=== PATIENT | male | born 1965 | race African-American/Black ===

== ENCOUNTER 2023-03-20 19:48 | Emergency (ER) | payer OTHER ==
[2023-03-20 20:24] LABS: #Basophils 0.1 thou/uL (0.0-0.2); #Eosinphils 0.2 thou/uL (0.0-0.7); #Lymphocytes 2.8 thou/uL (1.20-3.40); #Monocytes 0.5 thou/uL (0.11-0.59); #Neutrophils 3.7 thou/uL (1.40-6.50); %Basophils 1.1 % (0.0-1.0); %Eosinophils 2.2 % (0.0-10.0); %Lymphocytes 38.3 % (21.0-51.0); %Monocytes 6.9 % (0.0-10.0); %Neutrophils 51.5 % (42.0-75.0); Hemoglobin 13.2 g/dL (14.0-18.0); Mean Corpuscular HGB CONC 33.1 g/dL (32.0-36.0); Mean Corpuscular Hemoglobin 28.6 pg (27.0-31.0); Mean Corpuscular Volume 86.6 fl (78.0-98.0); Mean Platelet Volume 8.7 fL (7.4-10.4); Platelet Count 210 10x3/uL (130-400); RBC Distribution Width 12.8 % (11.5-14.5); Red Blood Cell (RBC) Count 4.62 mill/uL (4.70-6.10); White Blood Cell (WBC) Count 7.2 10x3/uL (4.8-10.8)
[2023-03-20 20:27] LABS: INR-International Normal Ratio 0.9; Prothrombin Time 12.7 sec (12.0-14.7)
[2023-03-20 20:30] LABS: PTT 22.8 sec (22.9-36.1)
[2023-03-20 20:38] LABS: ALT (SGPT) 44 U/L (8-55); AST (SGOT) 21 U/L (5-34); Albumin 3.8 g/dL (3.5-5.0); Alkaline Phosphatase 74 U/L (40-110); Anion Gap 13 mmol/L (10-20); BUN (Urea Nitrogen) 16 mg/dL (8.4-25.7); Bilirubin, Total 0.2 mg/dL (0.2-1.2); Calc. Creatinine Clearance 0 mL/min (70-130); Calcium 8.5 mg/dL (7.8-10.44); Carbon Dioxide 23 mmol/L (22-29); Chloride 103 mmol/L (98-107); Estimated GFR 54; Globulin 2.7 g/dL (2.4-3.5); Potassium 4.3 mmol/L (3.5-5.1); Protein, Total 6.5 g/dL (6.0-8.3); Sodium 135 mmol/L (136-145)
[2023-03-20 20:48] LABS: Glucose 496 mg/dL (70-105)
[2023-03-20] MEDS ORDERED: Sodium Chloride 0.9% 1,000 ML ONE (21:10)
[2023-03-20] MEDS ORDERED: Insulin Regular 300 UNITS/3 ML VIAL ONE (21:10)
[2023-03-20] MEDS ORDERED: Aspirin Chewable 81 MG TAB ONE (21:10)
[2023-03-21 00:17] LABS: Bilirubin Negative (Negative); Blood, Urine Negative (Negative); Clarity Clear (Clear); Glucose, Urine (Dipstick) >=1000 mg/dL (Negative); Ketone, Urine Negative (Negative); Leukocyte Negative (Negative); Nitrite Negative (Negative); Protein, Urine (Dipstick) Negative (Neg-Trace); Specific Gravity, Urine 1.015 (1.005-1.030); Urobilinogen 0.2 mg/dL (Less than 2)
[2023-03-21 00:18] LABS: CAUTI Indications for Culture Acute Hematuria; RBC/HPF None Seen HPF (0-3); Squamous Epithelial 0-3 HPF (0-3)
[2023-03-21 00:19] LABS: Urine Culture Reflex No No
[2023-03-21] MEDS ORDERED: Insulin Regular 300 UNITS/3 ML VIAL ONE (00:20)
== END 2023-03-21 01:48 | disposition short-term general hospital (02) ==
LOC: MADERS 19:48
DX: I63.9 Cerebral infarction, unspecified (principal); E11.65 Type 2 diabetes mellitus with hyperglycemia; R56.9 Unspecified convulsions; Z79.4 Long term (current) use of insulin; I10 Essential (primary) hypertension
CPT/HCPCS: 36416; 70450; 71046; 80053; 81001; 84484; 85025; 85610; 85730; 93005; 94760; 96361; 96374; J1815; J7050